=== PATIENT | male | born 1940 | race Hispanic/Latino ===

== ENCOUNTER → 2019-02-23 | Outpatient (CLI) | payer OTHER | END | disposition home or self-care (01) | LOC: OIH 12:35 | PROVIDERS: ATTEND Family Medicine | DX: S43.421A Sprain of right rotator cuff capsule, initial encounter (principal); M85.88 Other specified disorders of bone density and structure, other site; M19.011 Primary osteoarthritis, right shoulder; X58.XXXA Exposure to other specified factors, initial encounter; Y93.89 Activity, other specified; Y92.89 Other specified places as the place of occurrence of the external cause; Y99.8 Other external cause status | CPT/HCPCS: 73030; 73060 ==

== ENCOUNTER 2022-03-28 01:23 | Inpatient (IN) | payer OTHER ==
[~2022-03-28] VITALS: Ht 180.3 cm; Wt 79.8 kg
[~2022-03-28 01:23] MED LIST: GLIP5TAB11 PO; LISI20TA24 PO; SIMV-46 PO; vitamin d
[2022-03-28] MEDS ORDERED: ACETAMINOPHEN 325 MG TAB PO ONE (02:00)
[2022-03-28 02:05] LABS: BASOPHILS % (AUTO) 0.7 % (0.0-5.0); EOSINOPHILS % (AUTO) 4.2 % (0.0-8.0); HEMATOCRIT 37.4 % (42-54); MEAN CORPUSCULAR HEMOGLOBIN 28.3 pg (27.0-33.0); MEAN CORPUSCULAR HGB CONC 32.9 g/dL (32.0-36.0); MEAN CORPUSCULAR VOLUME 86.2 fL (79-99); MONOCYTES % (AUTO) 7.4 % (3.0-13.0); NEUTROPHILS % (AUTO) 75.4 % (40.0-77.0); PLATELET COUNT (AUTO) 238 K/uL (130-400); RED BLOOD CELL COUNT(AUTO) 4.34 MIL/uL (4.50-6.20); RED CELL DISTRIBUTION WIDTH 14.8 % (11.0-15.5); WHITE BLOOD COUNT (AUTO) 11.8 K/uL (4.8-10.8)
[2022-03-28] MEDS ORDERED: AMIODARONE 150MG VIAL IV STA (02:08)
[2022-03-28 02:26] LABS: CREATININE 1.1 mg/dL (0.5-1.5); POTASSIUM 3.8 mmol/L (3.5-5.1)
[2022-03-28 02:30] LABS: TOTAL PROTEIN, SERUM 8.3 g/dL (6.0-8.3)
[2022-03-28] MEDS ORDERED: DILTIAZEM 25MG INJ IVP ONE (02:30)
[2022-03-28 02:42] LABS: ABG BASE EXCESS -1.9 mmol/L (-2.0-3.0); ABG HCO3 21.8 mmol/L (21.0-28.0); ABG OXYGEN SATURATION 86.1 % (95.0-99.0); ABG PCO2 34 mmHg (35-48)
[2022-03-28 02:42] LABS: APPEARANCE,URINE CLEAR (CLEAR); BILIRUBIN,URINE NEGATIVE (NEGATIVE); COLOR,URINE LIGHT-YELLOW (YELLOW); GLUCOSE, URINE (UA) 70 mg/dL (NEGATIVE); KETONES,URINE NEGATIVE (NEGATIVE); LEUKOCYTE ESTERASE ,URINE NEGATIVE Leu/uL (NEGATIVE); NITRATE,URINE NEGATIVE (NEGATIVE); OCCULT BLOOD,URINE NEGATIVE (NEGATIVE); PH,URINE 5.5 (5.0-8.0); PROTEIN,URINE 20 mg/dL (NEGATIVE); UROBILINOGEN,URINE 0.2 mg/dL (0.2-1.0)
[2022-03-28 02:50] LABS: MUCUS,URINE RARE LPF (None Seen); WBC,URINE 0-1 /HPF (0-1)
[2022-03-28] MEDS ORDERED: DILTIAZEM 125 MG/25 ML INJ 125 MG in 0.9%NACL 100ML 100 ML IV SCH ×4 (03:00)
[2022-03-28] MEDS ORDERED: DILTIAZEM 125 MG/25 ML INJ IV ONE (03:24)
[2022-03-28] MEDS ORDERED: ALBUTEROL INHALER 90MCG/INH IH PRN (04:00)
[2022-03-28] MEDS ORDERED: HYDRALAZINE 20MG/ML VIAL IV PRN (04:00)
[2022-03-28] MEDS ORDERED: ACETAMINOPHEN 325 MG TAB PO PRN (04:00)
[2022-03-28] MEDS ORDERED: ACETAMINOPHEN 650 MG SUPPOSITORY RC PRN (04:00)
[2022-03-28] MEDS ORDERED: DILTIAZEM 125MG+100 ML NS 125 ML IV PRN (04:00)
[2022-03-28] MEDS: LACTATED RINGERS 1000ML 1,000 ML IV SCH ×3 (04:00→20:35)
[2022-03-28] MEDS ORDERED: ERGOCALCIFEROL (VITAMIN D2) 50,000 UNIT CAPSULE PO ONE (04:00)
[2022-03-28] MEDS ORDERED: ONDANSETRON 4MG INJ IVP PRN (04:00)
[2022-03-28] MEDS ORDERED: MORPHINE 2 MG SYG IVP PRN (04:00)
[2022-03-28] MEDS: DEXAMETHASONE SOD PHOSPHATE 4 MG/ML 1ML VIAL IVP SCH (04:00)
[2022-03-28] MEDS: DOXYCYCLINE 100MG+NS 250ML IV SCH ×2 (04:00→15:39)
[2022-03-28 04:41] LABS: ABG BASE EXCESS -2.9 mmol/L (-2.0-3.0); ABG HCO3 21.2 mmol/L (21.0-28.0); ABG OXYGEN SATURATION 97.9 % (95.0-99.0); ABG PCO2 35 mmHg (35-48)
[2022-03-28] MEDS: ALBUTEROL 0.083% 2.5 MG/3 ML INH IH PRN ×2 (06:22→11:17)
[2022-03-28] MEDS ORDERED: ERGOCALCIFEROL (VITAMIN D2) 50,000 UNIT CAPSULE ONE (08:25)
[2022-03-28] MEDS: ASCORBIC ACID 500 MG TAB PO SCH (08:31)
[2022-03-28] MEDS: ZINC SULFATE 220 CAPSULE PO SCH (08:32)
[2022-03-28] MEDS: INSULIN HUMULIN R 100 UNIT/ML 3ML SQ SCH ×4 (08:33→20:39)
[2022-03-28] MEDS ORDERED: ENOXAPARIN SODIUM 30 MG/0.3 ML SQ SCH (09:00)
[2022-03-28] MEDS ORDERED: DEXAMETHASONE SOD PHOSPHATE 10MG/ML 1ML VIAL IVP SCH (09:00)
[2022-03-28] MEDS ORDERED: ENOXAPARIN SODIUM 40 MG/0.4 ML SYRINGE SQ SCH (09:00)
[2022-03-28] MEDS ORDERED: DILTIAZEM 60MG TAB ONE (10:22)
[2022-03-28] MEDS: FUROSEMIDE 20MG VIAL IV SCH ×2 (10:26→20:36)
[2022-03-28] MEDS ORDERED: DILTIAZEM 60MG TAB PO SCH (10:30)
[2022-03-28] MEDS ORDERED: PANT40TA54 PO (10:37)
[2022-03-28 11:53] LABS: ABG BASE EXCESS 0.6 mmol/L (-2.0-3.0); ABG HCO3 24.7 mmol/L (21.0-28.0); ABG OXYGEN SATURATION 95.7 % (95.0-99.0); ABG PCO2 38 mmHg (35-48)
[2022-03-28 12:53] VITALS: BP 114/50
[2022-03-28] MEDS: METOPROLOL TARTRATE 25 MG TAB PO SCH ×3 (13:03→20:41)
[2022-03-28] MEDS ORDERED: 0.9% NACL 250ML 250 ML ONE (15:33)
[2022-03-28 15:40] VITALS: BP 104/54
[2022-03-28 19:53] VITALS: BP 108/58
[2022-03-28] MEDS ORDERED: ENOXAPARIN SODIUM 80 MG/0.8 ML SQ SCH (21:00)
[2022-03-28] MEDS ORDERED: PANTOPRAZOLE 40 MG TAB DR PO SCH (23:30)
[2022-03-28] MEDS ORDERED: PHARMACY COMMUNICATION MISC SCH (23:30)
[2022-03-29] VITALS (7 sets, daily range): BP systolic 100–144; BP diastolic 58–79
[2022-03-29] MEDS: DOXYCYCLINE 100MG+NS 250ML IV SCH ×2 (03:53→16:23)
[2022-03-29] MEDS: DEXAMETHASONE SOD PHOSPHATE 4 MG/ML 1ML VIAL IVP SCH (03:54)
[2022-03-29] MEDS: LACTATED RINGERS 1000ML 1,000 ML IV SCH (03:54)
[2022-03-29 04:09] LABS: BASOPHILS % (AUTO) 0.1 % (0.0-5.0); LYMPHOCYTES % (AUTO) 6.2 % (21.0-51.0); MEAN CORPUSCULAR HEMOGLOBIN 28.1 pg (27.0-33.0); MEAN CORPUSCULAR HGB CONC 31.6 g/dL (32.0-36.0); MEAN CORPUSCULAR VOLUME 88.8 fL (79-99); MONOCYTES % (AUTO) 6.5 % (3.0-13.0); NEUTROPHILS % (AUTO) 86.8 % (40.0-77.0); PLATELET COUNT (AUTO) 220 K/uL (130-400); RED BLOOD CELL COUNT(AUTO) 3.49 MIL/uL (4.50-6.20); RED CELL DISTRIBUTION WIDTH 14.8 % (11.0-15.5); WHITE BLOOD COUNT (AUTO) 11.4 K/uL (4.8-10.8)
[2022-03-29 04:23] LABS: ALBUMIN 2.9 g/dL (3.5-5.0); CREATININE 1.1 mg/dL (0.5-1.5); POTASSIUM 4.1 mmol/L (3.5-5.1); TOTAL PROTEIN, SERUM 6.9 g/dL (6.0-8.3)
[2022-03-29] MEDS: INSULIN HUMULIN R 100 UNIT/ML 3ML SQ SCH ×4 (05:48→21:00)
[2022-03-29] MEDS ORDERED: ENOXAPARIN SODIUM 80 MG/0.8 ML SQ SCH (09:00)
[2022-03-29 09:07] LABS: THYROID STIMULATING HORMONE 0.55 uIU/mL (0.36-3.74)
[2022-03-29] MEDS: ENOXAPARIN SODIUM 80 MG/0.8 ML SQ SCH ×2 (09:07→22:13)
[2022-03-29] MEDS: FUROSEMIDE 20MG VIAL IV SCH ×2 (09:07→22:12)
[2022-03-29] MEDS: ASCORBIC ACID 500 MG TAB PO SCH (09:08)
[2022-03-29] MEDS: PANTOPRAZOLE 40 MG TAB DR PO SCH (09:08)
[2022-03-29] MEDS: METOPROLOL TARTRATE 25 MG TAB PO SCH ×2 (09:08→22:12)
[2022-03-29] MEDS: ZINC SULFATE 220 CAPSULE PO SCH (09:08)
[2022-03-29 23:23] LABS: POTASSIUM 3.8 mmol/L (3.5-5.1)
[2022-03-30] VITALS (8 sets, daily range): BP systolic 117–147; BP diastolic 52–84
[2022-03-30] MEDS: DOXYCYCLINE 100MG+NS 250ML IV SCH ×2 (03:27→16:40)
[2022-03-30 04:18] LABS: BASOPHILS % (AUTO) 0.1 % (0.0-5.0); HEMATOCRIT 29.5 % (42-54); LYMPHOCYTES % (AUTO) 8.4 % (21.0-51.0); MEAN CORPUSCULAR HEMOGLOBIN 27.9 pg (27.0-33.0); MEAN CORPUSCULAR HGB CONC 31.5 g/dL (32.0-36.0); MEAN CORPUSCULAR VOLUME 88.6 fL (79-99); MONOCYTES % (AUTO) 5.3 % (3.0-13.0); NEUTROPHILS % (AUTO) 85.6 % (40.0-77.0); PLATELET COUNT (AUTO) 245 K/uL (130-400); RED BLOOD CELL COUNT(AUTO) 3.33 MIL/uL (4.50-6.20); RED CELL DISTRIBUTION WIDTH 14.5 % (11.0-15.5); WHITE BLOOD COUNT (AUTO) 9.8 K/uL (4.8-10.8)
[2022-03-30 04:45] LABS: ALBUMIN 2.8 g/dL (3.5-5.0); CREATININE 1.2 mg/dL (0.5-1.5); TOTAL PROTEIN, SERUM 6.5 g/dL (6.0-8.3)
[2022-03-30] MEDS: INSULIN HUMULIN R 100 UNIT/ML 3ML SQ SCH ×4 (06:47→20:13)
[2022-03-30] MEDS: DEXAMETHASONE 4 MG TAB PO SCH (09:15)
[2022-03-30] MEDS: ASCORBIC ACID 500 MG TAB PO SCH (09:16)
[2022-03-30] MEDS: ZINC SULFATE 220 CAPSULE PO SCH (09:16)
[2022-03-30] MEDS: PANTOPRAZOLE 40 MG TAB DR PO SCH ×2 (09:16→20:14)
[2022-03-30] MEDS: METOPROLOL TARTRATE 25 MG TAB PO SCH ×2 (09:16→20:15)
[2022-03-30] MEDS: ENOXAPARIN SODIUM 80 MG/0.8 ML SQ SCH (09:18)
[2022-03-30] MEDS: FUROSEMIDE 20MG VIAL IV SCH (09:19)
[2022-03-31 03:23] LABS: BASOPHILS % (AUTO) 0.1 % (0.0-5.0); HEMATOCRIT 31.5 % (42-54); LYMPHOCYTES % (AUTO) 11.6 % (21.0-51.0); MEAN CORPUSCULAR HEMOGLOBIN 28.3 pg (27.0-33.0); MEAN CORPUSCULAR HGB CONC 32.7 g/dL (32.0-36.0); MEAN CORPUSCULAR VOLUME 86.5 fL (79-99); MONOCYTES % (AUTO) 5.5 % (3.0-13.0); NEUTROPHILS % (AUTO) 82.2 % (40.0-77.0); PLATELET COUNT (AUTO) 281 K/uL (130-400); RED BLOOD CELL COUNT(AUTO) 3.64 MIL/uL (4.50-6.20); RED CELL DISTRIBUTION WIDTH 14.3 % (11.0-15.5); WHITE BLOOD COUNT (AUTO) 8.2 K/uL (4.8-10.8)
[2022-03-31 03:38] LABS: % IRON SATURATION 39.1 % (30-44); ALBUMIN 2.9 g/dL (3.5-5.0); CREATININE 1.1 mg/dL (0.5-1.5); POTASSIUM 3.7 mmol/L (3.5-5.1); TOTAL PROTEIN, SERUM 6.7 g/dL (6.0-8.3)
[2022-03-31 03:54] VITALS: BP 129/60
[2022-03-31] MEDS: DOXYCYCLINE 100MG+NS 250ML IV SCH ×2 (04:14→16:38)
[2022-03-31] MEDS: INSULIN HUMULIN R 100 UNIT/ML 3ML SQ SCH ×4 (06:21→20:43)
[2022-03-31 07:00] VITALS: BP 154/76
[2022-03-31] MEDS ORDERED: ENOXAPARIN SODIUM 40 MG/0.4 ML SYRINGE SQ SCH (09:00)
[2022-03-31] MEDS ORDERED: AMLODIPINE 5 MG TAB PO SCH ×2 (09:00→10:00)
[2022-03-31] MEDS: FUROSEMIDE 20 MG TABLET PO SCH (09:49)
[2022-03-31] MEDS: DEXAMETHASONE 4 MG TAB PO SCH (09:49)
[2022-03-31] MEDS: ASCORBIC ACID 500 MG TAB PO SCH (09:49)
[2022-03-31] MEDS: ZINC SULFATE 220 CAPSULE PO SCH (09:50)
[2022-03-31] MEDS: PANTOPRAZOLE 40 MG TAB DR PO SCH ×2 (09:50→20:42)
[2022-03-31 11:00] VITALS: BP 139/70
[2022-03-31 16:00] VITALS: BP 112/58
[2022-03-31 20:08] VITALS: BP 138/74
[2022-03-31] MEDS: APIXABAN 5 MG TABLET PO SCH (20:42)
[2022-03-31] MEDS ORDERED: METOPROLOL TARTRATE 25 MG TAB PO SCH (21:00)
[2022-03-31 23:59] VITALS: BP 126/70
[2022-04-01 03:35] LABS: BASOPHILS % (AUTO) 0.1 % (0.0-5.0); LYMPHOCYTES % (AUTO) 13.9 % (21.0-51.0); MEAN CORPUSCULAR HEMOGLOBIN 27.9 pg (27.0-33.0); MEAN CORPUSCULAR HGB CONC 32.9 g/dL (32.0-36.0); MEAN CORPUSCULAR VOLUME 84.9 fL (79-99); MONOCYTES % (AUTO) 7.6 % (3.0-13.0); NEUTROPHILS % (AUTO) 77.6 % (40.0-77.0); PLATELET COUNT (AUTO) 295 K/uL (130-400); RED BLOOD CELL COUNT(AUTO) 3.65 MIL/uL (4.50-6.20); WHITE BLOOD COUNT (AUTO) 7.9 K/uL (4.8-10.8)
[2022-04-01 03:51] LABS: CREATININE 0.9 mg/dL (0.5-1.5); POTASSIUM 3.9 mmol/L (3.5-5.1)
[2022-04-01 04:00] VITALS: BP 143/73
[2022-04-01] MEDS: DOXYCYCLINE 100MG+NS 250ML IV SCH (04:06)
[2022-04-01] MEDS: INSULIN HUMULIN R 100 UNIT/ML 3ML SQ SCH (06:11)
[2022-04-01] MEDS ORDERED: FURO20TA6 PO (07:31)
[2022-04-01] MEDS ORDERED: DOXY100T21 PO (07:31)
[2022-04-01] MEDS ORDERED: DEXA4 PO (07:31)
[2022-04-01] MEDS ORDERED: METO25 PO (07:31)
[2022-04-01] MEDS ORDERED: APIX5TAB PO (07:31)
[2022-04-01] MEDS ORDERED: AMLO5TAB4 PO (07:31)
[2022-04-01 08:00] VITALS: BP 164/79
[2022-04-01] MEDS: APIXABAN 5 MG TABLET PO SCH (08:20)
[2022-04-01] MEDS: ZINC SULFATE 220 CAPSULE PO SCH (08:20)
[2022-04-01] MEDS: PANTOPRAZOLE 40 MG TAB DR PO SCH (08:20)
[2022-04-01] MEDS: ASCORBIC ACID 500 MG TAB PO SCH (08:21)
[2022-04-01] MEDS: FUROSEMIDE 20 MG TABLET PO SCH (08:21)
[2022-04-01] MEDS: DEXAMETHASONE 4 MG TAB PO SCH (08:21)
[2022-04-01] MEDS ORDERED: AMLODIPINE 5 MG TAB PO SCH (09:00)
[2022-04-01] MEDS ORDERED: METOPROLOL TARTRATE 25 MG TAB PO SCH (09:00)
== END 2022-04-01 10:25 | disposition home or self-care (01) | DRG 871 ==
LOC: EDH 01:23 → EDHIP 03:42 → 2AH 10:57
PROVIDERS: ADMIT Internal Medicine Critical Care Medicine; ATTEND Internal Medicine Critical Care Medicine
DX: A41.9 Sepsis, unspecified organism (principal); I50.33 Acute on chronic diastolic (congestive) heart failure; J12.82 Pneumonia due to coronavirus disease 2019; J96.01 Acute respiratory failure with hypoxia; U07.1 COVID-19; E11.65 Type 2 diabetes mellitus with hyperglycemia; I11.0 Hypertensive heart disease with heart failure; D64.9 Anemia, unspecified; E78.00 Pure hypercholesterolemia, unspecified; I48.0 Paroxysmal atrial fibrillation; Z96.641 Presence of right artificial hip joint; Z90.49 Acquired absence of other specified parts of digestive tract; Z82.49 Family history of ischemic heart disease and other diseases of the circulatory system; Z79.899 Other long term (current) drug therapy; Z79.01 Long term (current) use of anticoagulants
CPT/HCPCS: 36415; 36600; 71045; 71250; 80048; 80053; 81001; 82270; 82435; 82550; 82728; 82803; 82947; 82948; 83540; 83550; 83605; 83615; 83735; 83880; 84132; 84145; 84295; 84443; 84484; 85018; 85025; 85378; 86850; 86900; 86901; 87040; 87071; 87205; 87635; 87804; 93005; 93306; 93356; 94640; 94664; 94667; 94668; 94760; 99291; C9803; G0378; J0282; J1100; J1650; J1815; J1940; J3490; J7050; J7120; J8540

== ENCOUNTER 2022-11-11 11:53 | Emergency (ER) | payer OTHER ==
[~2022-11-11] VITALS: Ht 180.3 cm; Wt 78.0 kg
[~2022-11-11 11:53] MED LIST changes: +APIX5TAB PO; +ERGO800010 PO; +GLIP2.5T PO; -GLIP5TAB11 PO; +LEVO750T68 PO; +METF-446 PO; +METO25 PO; +PANT40GR PO; -SIMV-46 PO; +SIMV40TA59 PO; -vitamin d
[2022-11-11] MEDS ORDERED: ACETAMINOPHEN 500 MG TABLET PO ONE (12:30)
[2022-11-11] MEDS ORDERED: ACET-2521 PO (14:08)
[2022-11-11 14:21] VITALS: BP 123/58; PULSE 78; RESP 18; O2SAT 98
== END 2022-11-11 14:23 | disposition home or self-care (01) ==
LOC: EDH 11:53
DX: M75.01 Adhesive capsulitis of right shoulder (principal); M25.511 Pain in right shoulder; M19.90 Unspecified osteoarthritis, unspecified site; E11.9 Type 2 diabetes mellitus without complications; E78.00 Pure hypercholesterolemia, unspecified; I10 Essential (primary) hypertension; Z79.01 Long term (current) use of anticoagulants; Z79.84 Long term (current) use of oral hypoglycemic drugs; Z79.899 Other long term (current) drug therapy
CPT/HCPCS: 73030

== ENCOUNTER 2024-05-07 16:21 | Emergency (ER) | payer OTHER ==
[~2024-05-07] VITALS: Ht 180.3 cm; Wt 79.8 kg
[~2024-05-07 16:21] MED LIST changes: +ATOR20TA65 PO; +DAPA10TA PO; +DILT240C81 PO; +ERGO500093 PO; -ERGO800010 PO; +FLUT1AER IH; -GLIP2.5T PO; +GLIP2.5T23 PO; -LEVO750T68 PO; -LISI20TA24 PO; -METO25 PO; -PANT40GR PO; +PANT40TA54 PO; -SIMV40TA59 PO
[2024-05-07] MEDS: NEOMY SULF/BACITRA/POLYMYXIN B 1 EACH PACKET TP ONE (16:30)
[2024-05-07] MEDS ORDERED: OCTYL 2-CYANOACRYLATE 1 EACH TP SCH (16:30)
--- NOTE | 2024-05-07 16:38 | ERN ---
ED Note History of Present Illness Stated Complaint: MECHANICAL FALL Chief Complaint: Mechanical Fall Time Seen by MD: 16:23 Dictation: PATIENT IS AN 83-YEAR-OLD MALE COMING IN WITH A LACERATION TO THE LEFT TEMPORAL AREA, LEFT HAND SWELLING, BILATERAL KNEE PAIN STATUS POST A FALL. HE AND HIS FAMILY STATES THEY WERE AT A TODAY HE WAS WALKING OUT OF THE , TRIPPED AND FELL HIT HIS HEAD. NO LOC NO BLOOD THINNERS NO TRAUMA ALERT CRITERIA. LAST TETANUS SHOT IS UNKNOWN. NO SPINAL PAIN AT THIS TIME NO STEP- OFFS AND PATIENT'S FAMILY STATE HE IS NEUROLOGICALLY INTACT WITH SPEECH CLEAR Allergies: Coded Allergies: No Known Allergies (Verified Allergy, Unknown, 10/30/21) Home Meds Active Scripts Cephalexin (Cephalexin) 500 Mg Tablet, 1 TAB PO TID for 7 Days, #21 TAB 0 Refills Prov:DIAN VELASCO HIDE MEASURING MACHINE OPERATOR 05/07/24 Reported Medications Fluticasone/Vilanterol (Breo Ellipta 100-25 Mcg INH) 100 Mcg-25 Mcg/Dose Aer.pow.ba, 1 EACH IH DAILYBKFST 06/21/23 Atorvastatin Calcium (Atorvastatin Calcium) 20 Mg Tablet, 20 MG PO DAILY, TAB 06/21/23 Glipizide (Glipizide ER) 2.5 Mg Tab.er.24, 2.5 MG PO DAILY 06/21/23 Ergocalciferol (Vitamin D2) (Vitamin D2) 1,250 Mcg (41010 Unit) Capsule, 1250 MCG PO QWEEK, CAP 06/21/23 Dapagliflozin Propanediol (Farxiga) 10 Mg Tablet, 10 MG PO DAILYBKFST, TAB 06/21/23 Apixaban (Eliquis) 5 Mg Tablet, 5 MG PO BID, TAB 06/21/23 Metformin HCl (Metformin HCl) 1,000 Mg Tablet, 1000 MG PO BID, TAB 06/21/23 Pantoprazole Sodium (Pantoprazole Sodium) 40 Mg Tablet.dr, 40 MG PO DAILY, TAB 06/21/23 Diltiazem HCl (Diltiazem ER) 240 Mg Capsule.er, 240 MG PO DAILYBKFST, CAP 06/21/23 Past Medical History Past Medical History: Arthritis, Diabetes-Type II, High Cholesterol, Hypertension Surgical History: Other Surgical History Other: BACK SURGERY, HIP SX Family History: HTN Social History: Negative, Lives with family RN Note Reviewed/Agreed w/PFSH: Yes Review of System Dictation CONSTITUTIONAL: NEGATIVE EXCEPT FOR HPI HEAD/FACE: NEGATIVE EXCEPT FOR HPI LEFT TEMPORAL LACERATION EENT: NEGATIVE EXCEPT FOR HPI RESPIRATORY: NEGATIVE EXCEPT FOR HPI GASTROINTESTINAL/ABDOMINAL: NEGATIVE EXCEPT FOR HPI GENITOURINARY: NEGATIVE EXCEPT FOR HPI MUSCULOSKELETAL: NEGATIVE EXCEPT FOR HPI LEFT HAND PAIN SWELLING, ABRASIONS WITH KNEE PAIN BILATERALLY INTEGUMENTARY: NEGATIVE EXCEPT FOR HPI NEUROLOGICAL/PSYCH: NEGATIVE EXCEPT FOR HPI HEMATOLOGIC/LYMPHATIC: NEGATIVE EXCEPT FOR HPI ALL SYSTEMS NEGATIVE, EXCEPT NOTED ABOVE. 13 POINT REVIEW OF SYSTEMS ASSESSED AND ALL NEGATIVE EXCEPT FOR ABOVE. Initial Vital Sign VS Vital Signs Date Time Temp Pulse Resp B/P (MAP) Pulse Ox O2 Delivery O2 Flow Rate FiO2 05/07/24 16:31 98.2 71 16 161/94 97 Room Air 05/07/24 20:30 0 21 Physical Exam Dictation VITAL SIGNS REVIEWED GENERAL APPEARANCE: ALERT, ORIENTED X 3, NO ACUTE DISTRESS, WELL DEVELOPED, NOURISHED. HEAD AND FACE: LEFT TEMPORAL 3 CM LACERATION. NO FRANCISCO OR RACCOON SIGN EYES: PERRL, PINK CONJUNCTIVAS, EYELID NO TRAUMA, ANTERIOR CHAMBER WITH ARCUS SENILIS. EARS: PINNAS INTACT AND NO SIGNS OF TRAUMA OR ERYTHEMA EAR CANALS CLEAR AND NO DISCHARGE TM NO ERYTHEMA NO HEMOTYMPANUM NOSE: NO DISCHARGE, NO BLEEDING. OROPHARYNX: MOUTH NORMAL, TONGUE PINK, PHARYNX CLEAR,NO ERYTHEMA, TONSILS NO EXUDATES, NO ABSCESSES NOTED, MUCOUS MEMBRANE MOIST NECK: SUPPLE, NON-TENDER, NO THYROMEGALY, NO MASSES, NO JVD, NO BRUITS BREAST:DEFERRED CHEST:NO TENDERNESS, NO CREPITUS, NO PARADOXICAL MOVEMENT, NO RETRACTIONS LUNGS:CLEAR, WELL-VENTILATED, SYMMETRIC, NO RALES, NO WHEEZING, NO RHONCHI, NO STRIDOR, GOOD BREATH SOUNDS BILATERALLY HEART: REGULAR RATE, REGULAR RHYTHM, NO MURMUR, NO GALLOPS VASCULAR: NO PERIPHERAL EDEMA, ABDOMEN: SOFT, POSITIVE BOWEL SOUNDS, NONDISTENDED, NO GUARDING, NONTENDER, NO REBOUND, NO MASSES NO HEPATOMEGALY, NO SPLENOMEGALY, NO NELSON'S SIGN, NO HERNIAS. RECTAL: DEFERRED GENITAL: DEFERRED NEUROLOGICAL: NORMAL SPEECH, MOTOR FUNCTION INTACT, SENSORY FUNCTION INTACT MUSCULOSKELETAL: NECK NONTENDER, FULL RANGE OF MOTION, BACK NONTENDER, FULL RANGE OF MOTION, NO SPINAL OR BACK PAIN. NO STEP-OFFS FULL RANGE OF MOTION LEFT HAND 4TH METACARPAL PAIN SWELLING. EXTREMITIES: , FULL RANGE OF MOTION LEFT HAND 4TH METACARPAL PAIN SWELLING. SKIN: COLOR PINK, DRY, NO TURGOR, NO RASH, NO LACERATIONS, NO ABRASIONS, NO CONTUSIONS. LYMPHATIC: DEFERRED Results (Laboratory/Radiology) Laboratory/Radiology RIGHT KNEE RADIOGRAPHS - 3 VIEWS INDICATION: Pain COMPARISON: None FINDINGS: AP, lateral, and oblique views. No acute fracture or dislocation identified. No significant joint effusion is present. Overlying soft tissues appear normal. IMPRESSION: No evidence for fracture or dislocation. LEFT KNEE RADIOGRAPHS - 3 VIEWS INDICATION: Pain COMPARISON: None FINDINGS: AP, lateral, and oblique views. No fracture or dislocation identified. 1.0 x 0.5 cm osseous overgrowth arises superiorly from the medial margin of the distal left femoral metaphysis compatible with small osteochondroma. No significant joint effusion is present. Overlying soft tissues appear normal. No radiopaque foreign body noted. IMPRESSION: No evidence for fracture or dislocation. LEFT HAND RADIOGRAPHS - 3 VIEWS INDICATION: Pain COMPARISON: None FINDINGS: AP, lateral, and oblique views. Nondisplaced slightly comminuted fracture through the far proximal fourth metacarpal shaft, but no evidence for joint subluxation. Moderate first carpometacarpal joint osteoarthropathy. Scaphoid bone is intact. Carpal alignment and ulnar variance is within normal limits. No radiopaque foreign body noted. IMPRESSION: Nondisplaced slightly comminuted fracture through the far proximal fourth metacarpal shaft, but no evidence for joint subluxation. LEFT RIBS/CHEST RADIOGRAPHS - 5 VIEWS INDICATION: Left rib pain COMPARISON: None FINDINGS: Heart size is normal. Lungs are clear. No evidence for pneumothorax or pleural effusion. No evidence for pulmonary parenchymal contusion. No rib fracture identified. No radiopaque foreign body noted. IMPRESSION: 1. No rib fracture identified. 2. No radiographic evidence for any acute cardiopulmonary process. Labs Reviewed?: Yes ED Course ED Course Orders Procedure Category Date Status Time Knee 3vws Lt RAD 05/07/24 Resulted 16:30 Knee 3vws Rt RAD 05/07/24 Resulted 16:30 Hand 3+Vws Lt RAD 05/07/24 Resulted 16:30 Dermabond (Dermabond) PHA 05/07/24 Complete 16:30 Tetanus,Diphtheria PHA 05/07/24 Complete Tox [Adult] (Diphther 16:30 Neomy PHA 05/07/24 Complete Sulf/Bacitra/Polymyxin 16:30 Apply Ice Pack To: CPOE 05/07/24 Transmitted (Er) 16:30 Volar Splint JOSR.ER 05/07/24 Complete 19:10 Ribs Uni Lt W Pa RAD 05/07/24 Resulted Chest 3+Vws 18:09 Dermabond (Dermabond) PHA 05/07/24 Complete 21:00 Neomy PHA 05/07/24 Complete Sulf/Bacitra/Polymyxin 21:00 Current Medications Medications (Trade) Dose Ordered Sig/Lior Route PRN Reason Start Time Stop Time Status Last Admin Dose Admin Neomycin/ Polymyxin/ Bacitracin (Triple Antibiotic Ointment) 1 appl ONCE ONCE TP 05/07/24 16:30 05/07/24 16:33 DC 05/07/24 16:30 Neomycin/ Polymyxin/ Bacitracin (Triple Antibiotic Ointment) 1 appl ONCE ONCE TP 05/07/24 21:00 05/07/24 21:01 DC Octyl Cyanoacrylate (Dermabond) 1 each ONCE TP 05/07/24 16:30 05/07/24 20:37 DC Octyl Cyanoacrylate (Dermabond) 1 each ONCE ONCE TP 05/07/24 21:00 05/07/24 21:01 DC 05/07/24 20:53 Tetanus/ Diphtheria Toxoids Adsorbed (DiphthERIA-teTANUS TOXOID [ADULT]/ DECAVAC) 0.5 ml ONCE ONCE IM 05/07/24 16:30 05/07/24 16:33 DC 05/07/24 20:53 Vital Signs Date Time Temp Pulse Resp B/P (MAP) Pulse Ox O2 Delivery O2 Flow Rate FiO2 05/07/24 20:30 98.2 70 16 160/90 98 Room Air* 0 21 05/07/24 16:31 98.2 71 16 161/94 97 Room Air 1950 left volar splint placed to hand. Neurovascular CMS intact post placement by tech. Family was made aware of the x-ray of the left hand and the fracture of the 4th metacarpal Also the need for follow up with Orthopedics Medical Decision Making MDM Medical discharge making based on x-rays of bilateral knees, left hand, left ribs. All x-rays negative except left hand Patient has a left 4th proximal metacarpal fracture This was stabilized with a splint Patient discharged home neurologically intact Aware to call up Dr. Jane Suresh in the next 1-2 days for manage MDM: Differential diagnosis: Fall, knee contusion, abrasion Risk of complication and/or morbidity or mortality of patient management: None Medications-Per medication reconciliation Need for hospitalization: Patient does not meet criteria for hospitalization. Need for emergency major/minor surgery: No There are no social concerns with this patient. Prescription drug management Prescriptions will include symptomatic care I independently interpreted the test that were performed, results were reviewed by me and considered findings on radiology if ordered. Procedure Procedure Dictation: 1946, procedure explained to patient he agreed to proceed 3 Cm laceration to right temporal scalp Cleaned with wound cleanser Approximated with Dermabond and Steri-Strips Single-layer closure Patient tolerated DX & DISP Disposition: Discharge Departure Impression: Primary Impression: Fracture of fourth metacarpal bone of left hand Additional Impressions: Contusion of left chest wall, Contusion of knee, left, Contusion of knee, right, Multiple abrasions, Simple laceration of scalp, Fall Condition: Stable Scripts Cephalexin (Cephalexin) 500 Mg Tablet 1 TAB PO TID for 7 Days, #21 TAB 0 Refills Prov: DIAN VELASCO HIDE MEASURING MACHINE OPERATOR 05/07/24 Additional Instructions: Follow-up with primary care provider in 1 to 2 days. Take medications as directed here in the emergency room. Okay to continue home medications unless otherwise discussed during your visit in the emergency room today. Return to your nearest emergency room if symptoms worsen or if there is no improvement. Call 911 if you need immediate assistance. Take Tylenol or Motrin [id number] as needed and if no contraindications are present. Increase oral hydration. A wound culture or urine culture was ordered here in the emergency room department please follow-up with primary care provider and advise them to get repeat ports from our facility. If you had any Manolo wrap/splints that were applied here, please do not remove them until you see your primary care or specialty. Keep laceration repair clean and dry. Steri-Strips were fall off on their own. Splint and no weight-bearing left hand until cleared by orthopedic surgeon, call for an appointment tomorrow. Referrals: SEEMA MENDOZA MD (PCP) JANE SURESH MD Time of Disposition: 19:56 I have reviewed the case, and I agree with, Diagnosis and Plan I performed the substantive portion of the visit. I have reviewed and personally made and approve the management plan that is documented in the notes by myself or the KIRSTY. I acknowledge full responsibility for the patient's management plan. DIAN VELASCO NP May 07, 2024 16:38 BONILLA OAKLEY MD May 08, 2024 16:37
--- NOTE | 2024-05-07 17:44 | HMCIMG ---
LEFT HAND RADIOGRAPHS - 3 VIEWS INDICATION: Pain COMPARISON: None FINDINGS: AP, lateral, and oblique views. Nondisplaced slightly comminuted fracture through the far proximal fourth metacarpal shaft, but no evidence for joint subluxation. Moderate first carpometacarpal joint osteoarthropathy. Scaphoid bone is intact. Carpal alignment and ulnar variance is within normal limits. No radiopaque foreign body noted. IMPRESSION: Nondisplaced slightly comminuted fracture through the far proximal fourth metacarpal shaft, but no evidence for joint subluxation.
--- NOTE | 2024-05-07 17:45 | HMCIMG ---
LEFT KNEE RADIOGRAPHS - 3 VIEWS INDICATION: Pain COMPARISON: None FINDINGS: AP, lateral, and oblique views. No fracture or dislocation identified. 1.0 x 0.5 cm osseous overgrowth arises superiorly from the medial margin of the distal left femoral metaphysis compatible with small osteochondroma. No significant joint effusion is present. Overlying soft tissues appear normal. No radiopaque foreign body noted. IMPRESSION: No evidence for fracture or dislocation.
--- NOTE | 2024-05-07 17:45 | HMCIMG ---
RIGHT KNEE RADIOGRAPHS - 3 VIEWS INDICATION: Pain COMPARISON: None FINDINGS: AP, lateral, and oblique views. No acute fracture or dislocation identified. No significant joint effusion is present. Overlying soft tissues appear normal. IMPRESSION: No evidence for fracture or dislocation.
--- NOTE | 2024-05-07 19:23 | HMCIMG ---
LEFT RIBS/CHEST RADIOGRAPHS - 5 VIEWS INDICATION: Left rib pain COMPARISON: None FINDINGS: Heart size is normal. Lungs are clear. No evidence for pneumothorax or pleural effusion. No evidence for pulmonary parenchymal contusion. No rib fracture identified. No radiopaque foreign body noted. IMPRESSION: 1. No rib fracture identified. 2. No radiographic evidence for any acute cardiopulmonary process.
--- NOTE | 2024-05-07 19:28 | NUR ---
LACERATION TO LEFT CAODAISM AREA. DRESSING SOILED. NON ADHERENT DRESSING APPLIED AND SECUREDE WITH CONNOR BANDAGE. ICE PACK PROVIDED
[2024-05-07] MEDS ORDERED: CEPH500T PO (19:57)
--- NOTE | 2024-05-07 20:28 | NUR ---
PT TO FT AT THIS TIME
[2024-05-07 20:30] VITALS: BP 160/90; PULSE 70; RESP 16; TEMP 98.2; O2SAT 98
[2024-05-07] MEDS: teTANUS/diphthERIA TOXOID [ADULT] 0.5 ML VIAL IM ONE (20:53)
[2024-05-07] MEDS: OCTYL 2-CYANOACRYLATE 1 EACH TP ONE (20:53)
[2024-05-07] MEDS ORDERED: NEOMY SULF/BACITRA/POLYMYXIN B 1 EACH PACKET TP ONE (21:00)
== END 2024-05-07 21:03 | disposition home or self-care (01) ==
LOC: EDH 16:21
DX: S62.355A Nondisplaced fracture of shaft of fourth metacarpal bone, left hand, initial encounter for closed fracture (principal); S01.01XA Laceration without foreign body of scalp, initial encounter; S20.212A Contusion of left front wall of thorax, initial encounter; S80.01XA Contusion of right knee, initial encounter; S80.02XA Contusion of left knee, initial encounter; M19.90 Unspecified osteoarthritis, unspecified site; E11.9 Type 2 diabetes mellitus without complications; E78.00 Pure hypercholesterolemia, unspecified; I10 Essential (primary) hypertension; Z79.01 Long term (current) use of anticoagulants; Z79.51 Long term (current) use of inhaled steroids; Z79.84 Long term (current) use of oral hypoglycemic drugs; Z79.899 Other long term (current) drug therapy; W01.0XXA Fall on same level from slipping, tripping and stumbling without subsequent striking against object, initial encounter; Y93.89 Activity, other specified; Y92.89 Other specified places as the place of occurrence of the external cause; Y99.8 Other external cause status
CPT/HCPCS: 12002; 29125; 71101; 73130; 73562; 90471; 90714; 99284

== ENCOUNTER 2024-05-11 21:30 | Emergency (ER) | payer OTHER ==
[~2024-05-11] VITALS: Ht 180.3 cm; Wt 82.1 kg
[~2024-05-11 21:30] MED LIST changes: +CEPH500T PO; +GLIP2.5T2 PO; -GLIP2.5T23 PO
--- NOTE | 2024-05-11 22:47 | ERN ---
General Chief Complaint: Arm Swelling/Redness Stated Complaint: MULTIPLE COMPLAINTS Time Seen by MD: 21:31 Source: patient, family History of Present Illness Initial Comments Patient is a an 83-year-old male coming in to be evaluated for left hand swel ling. Per patient he was diagnosed with a 10 fracture type of the days ago but states that he was not been able to see photographic specialist. Patient also states that he was had has a been hurting more. Allergies: Coded Allergies: No Known Allergies (Verified Allergy, Unknown, 10/30/21) Home Meds Active Scripts Cephalexin (Cephalexin) 500 Mg Tablet, 1 TAB PO TID for 7 Days, #21 TAB 0 Refills Prov:RODDIAN CUSTOMER OPERATIONS REPRESENTATIVE 05/07/24 Reported Medications Fluticasone/Vilanterol (Breo Ellipta 100-25 Mcg INH) 100 Mcg-25 Mcg/Dose Aer.pow.ba, 1 EACH IH DAILYBKFST 06/21/23 Atorvastatin Calcium (Atorvastatin Calcium) 20 Mg Tablet, 20 MG PO DAILY, TAB 06/21/23 Glipizide (Glipizide ER) 2.5 Mg Tab.er.24, 2.5 MG PO DAILY 06/21/23 Ergocalciferol (Vitamin D2) (Vitamin D2) 1,250 Mcg (30235 Unit) Capsule, 1250 MCG PO QWEEK, CAP 06/21/23 Dapagliflozin Propanediol (Farxiga) 10 Mg Tablet, 10 MG PO DAILYBKFST, TAB 06/21/23 Apixaban (Eliquis) 5 Mg Tablet, 5 MG PO BID, TAB 06/21/23 Metformin HCl (Metformin HCl) 1,000 Mg Tablet, 1000 MG PO BID, TAB 06/21/23 Pantoprazole Sodium (Pantoprazole Sodium) 40 Mg Tablet.dr, 40 MG PO DAILY, TAB 06/21/23 Diltiazem HCl (Diltiazem ER) 240 Mg Capsule.er, 240 MG PO DAILYBKFST, CAP 06/21/23 Past Medical History Past Medical History: Diabetes-Type II, High Cholesterol, Hypertension Past Surgical History: Other Surgical History Other: BACK SURGERY, HIP SX Family History Family History: HTN Social History Social History: Negative, Lives with family ROS Dictation CONSTITUTIONAL: No chills, no fever, no weakness, no diaphoresis, no malaise. HEAD/FACE: No signs of trauma. EENT: No eye pain, no blurred vision, no tearing, no double vision, no ear pain, no ear discharge, no nose pain, no nasal congestion, no throat pain, no throat swelling, no mouth pain. RESPIRATORY: No cough, no orthopnea, no SOB, no stridor, no wheezing. CARDIOVASCULAR: No chest pain, no edema, no palpitations, no syncope. GASTROINTESTINAL/ABDOMINAL: No abdominal pain, no constipation, no diarrhea, no nausea, no vomiting. GENITOURINARY: No abnormal discharge, no dysuria, no frequent urination, no hematuria. No complaints of pain in the genitals. MUSCULOSKELETAL: No back pain, no gout, no joint pain, joint swelling,muscle pain, no muscle stiffness, no neck pain. INTEGUMENTARY: No change in color, no change in hair/nails, no dryness, no lesion, no lumps, no rash. NEUROLOGICAL/PSYCH: No anxiety, not depressed, no emotional problem, no headache, no numbness, no pre-existing deficit, no history of seizures, no tremors, no weakness. HEMATOLOGIC/LYMPHATIC: Not anemic, no history of blood clots, no apparent bleeding, no bruising, glands not swollen. All Systems Negative, Except as Noted. Physical Exam Physical Exam Dictation VITAL SIGNS: Reviewed. GENERAL APPEARANCE: Alert, oriented x3, no acute distress, obese. HEAD AND FACE: Non-traumatic. EYES: PERRL, pink conjunctivas, eyelid no trauma, anterior chamber clear. EARS: Pinnas intact and no signs of trauma or erythema. Ear canals clear and no discharge. TMs no erythema. NOSE: No discharge, no bleeding. OROPHARYNX: Mouth normal, teeth no caries, tongue pink. Pharynx clear, no erythema. Tonsils no exudates, no abscesses noted. Mucous membrane moist. NECK: Supple, non-tender, no thyromegaly, no masses, no JVD, no bruits. BREAST: Deferred. CHEST: No tenderness, no crepitus, no paradoxical movement, no retractions. LUNGS: Clear, well-ventilated, symmetric, no rales, no wheezing, no rhonchi, no stridor, good breath sounds bilaterally. HEART: Regular rate, regular rhythm, no murmur, no gallops. VASCULAR: No peripheral edema. ABDOMEN: Soft, positive bowel sounds, nondistended, no guarding, nontender, no rebound, no masses no hepatomegaly, no splenomegaly, no Peña's sign, no hernias. RECTAL: Deferred. GENITAL: Deferred. NEUROLOGICAL: Normal speech, gross motor function intact, gross sensory function intact. MUSCULOSKELETAL: Neck nontender, full range of motion, back nontender, full range of motion. EXTREMITIES: Nontender, full range of motion. Left hand pain on palpation, pulses present SKIN: Color pink, dry, no turgor, no rash, no lacerations, no abrasions, no contusions. LYMPHATICS: Deferred. Results Laboratory and Microbiology Labs Reviewed?: Yes EKG/XRAY/US/CT/MRI X-RAY Comment [id number] [address] IMAGING REPORT Signed PATIENT: JENAE FISHER MR#: [id number] : 1940 SEX: M AGE: 83 LOCATION: [facility] ORDER 32 STATUS: [facility] REPORT#: [id number] SERVICE 29 REASON: LEFT 4TH METACARPAL PAIN SWELLING STATUS POST FALL ORDERING PHYSICIAN: DIAN VELASCO NP PROCEDURE: HAND 3V LT - HAND 3+VWS LT LEFT HAND RADIOGRAPHS - 3 VIEWS INDICATION: Pain COMPARISON: None FINDINGS: AP, lateral, and oblique views. Nondisplaced slightly comminuted fracture through the far proximal fourth metacarpal shaft, but no evidence for joint subluxation. Moderate first carpometacarpal joint osteoarthropathy. Scaphoid bone is intact. Carpal alignment and ulnar variance is within normal limits. No radiopaque foreign body noted. IMPRESSION: Nondisplaced slightly comminuted fracture through the far proximal fourth metacarpal shaft, but no evidence for joint subluxation. DICTATED BY: BRITTANIE HERRMANN MD DATE: 05/07/241740 ELECTRONICALLY SIGNED BY: BRITTANIE HERRMANN MD DATE: 05/07/241743 Left hand x-ray- no change from previous one MDM MDM: Differential diagnosis: Metacarpal fracture, follow up, Patient is a an 83-year-old gentleman coming in to be evaluated for left hand pain. Patient was diagnosed with metacarpal fracture previous visit. Per patient he was concerned because the swelling is present. On physical exam patient is wearing a sling in his hand is splinted, laying not for used I educated him on proper placement of and in order to improve congestion of the distal extremity. Also advised him appropriate follow up PCP and/or orthopedic specimen 1-2 days. ED Course Orders Procedure Category Date Status Time Hand 3+Vws Lt RAD 05/11/24 Taken 21:39 Vital Signs Date Time Temp Pulse Resp B/P (MAP) Pulse Ox O2 Delivery O2 Flow Rate FiO2 05/11/24 21:37 98.2 75 20 122/80 98 Room Air DX & DISP Disposition: Discharge Departure Impression: Primary Impression: Fracture of fourth metacarpal bone of left hand Condition: Stable Additional Instructions: FOLLOW-UP WITH PRIMARY CARE PROVIDER IN 1 TO 2 DAYS. TAKE MEDICATIONS DIRECTED HERE IN THE EMERGENCY ROOM. OKAY TO CONTINUE HOME MEDICATIONS UNLESS OTHERWISE DISCUSSED DURING YOUR VISIT IN THE EMERGENCY ROOM TODAY. RETURN TO YOUR NEAREST EMERGENCY ROOM IF SYMPTOMS WORSEN OR IF THERE IS NO IMPROVEMENT. CALL 911 IF YOU NEED IMMEDIATE ASSISTANCE. TAKE TYLENOL [id number] NEEDED AND IF NO CONTRAINDICATIONS ARE PRESENT. INCREASE ORAL HYDRATION. A WOUND CULTURE OR URINE CULTURE WAS ORDERED HERE IN THE EMERGENCY ROOM DEPARTMENT PLEASE FOLLOW-UP WITH PRIMARY CARE PROVIDER AND ADVISE THEM TO GET REPEAT PORTS FROM OUR FACILITY. IF YOU HAD ANY CONNOR WRAP/SPLINTS THAT WERE APPLIED HERE, PLEASE DO NOT REMOVE THEM UNTIL YOU SEE YOUR PRIMARY CARE OR SPECIALTY. Referrals: Referrals: SEEMA MENDOZA MD (PCP) NELDA HAWKINS MD Time of Disposition: 22:47 EVAN CUEVAS MD May 11, 2024 22:47
[2024-05-11 23:00] VITALS: BP 120/80; PULSE 72; RESP 16; TEMP 98.2; O2SAT 98
--- NOTE | 2024-05-11 23:21 | NUR ---
previous splint placed remove and modified preformed splint placed per md request
--- NOTE | 2024-05-12 08:27 | HMCIMG ---
HAND 3+VWS LT REASON: increased pain TECHNIQUE: 3 views were obtained. FINDINGS: There is no evidence of fracture or dislocation. There is no joint effusion. The soft tissues appear unremarkable. There is no evidence of a radiopaque foreign body. There are severe degenerative changes at the base of the thumb consistent with osteoarthritis. There are less pronounced changes in the DIP joints. IMPRESSION: No acute findings.
== END 2024-05-11 23:24 | disposition home or self-care (01) ==
LOC: EDH 21:30
DX: S62.315A Displaced fracture of base of fourth metacarpal bone, left hand, initial encounter for closed fracture (principal); E11.9 Type 2 diabetes mellitus without complications; E78.00 Pure hypercholesterolemia, unspecified; I10 Essential (primary) hypertension; Z79.01 Long term (current) use of anticoagulants; Z79.51 Long term (current) use of inhaled steroids; Z79.84 Long term (current) use of oral hypoglycemic drugs; Z79.899 Other long term (current) drug therapy; X58.XXXA Exposure to other specified factors, initial encounter; Y93.89 Activity, other specified; Y92.89 Other specified places as the place of occurrence of the external cause; Y99.8 Other external cause status
CPT/HCPCS: 29125; 73130; 99283

== ENCOUNTER 2025-01-15 10:46 | Emergency (ER) | payer OTHER ==
[~2025-01-15] VITALS: Ht 180.3 cm; Wt 78.5 kg
[~2025-01-15 10:46] MED LIST changes: -GLIP2.5T2 PO; +GLIP2.5T23 PO
[2025-01-15 11:14] LABS: IMMATURE GRANULOCYTE ABSOLUTE 0.01 K/uL (0-1); NUCLEATED RED BLOOD CELLS 0.0 % (0.0-0.19); PLATELET COUNT (AUTO) 225 K/uL (130-400); RED BLOOD CELL COUNT(AUTO) 3.92 MIL/uL (4.50-6.20); RED CELL DISTRIBUTION WIDTH 15.6 % (11.0-15.5); WHITE BLOOD COUNT (AUTO) 8.5 K/uL (4.8-10.8)
[2025-01-15 11:23] LABS: ASPARTATE AMINOTRANSFERASE 22.0 U/L (10-37); CREATININE 1.1 mg/dL (0.5-1.3); GLOMERULAR FILTR. RATE CALC 65.0 mL/min (>90); GLUCOSE,RANDOM 93.0 mg/dL (70-105); SODIUM SERUM 141.0 mmol/L (136-145); TOTAL PROTEIN, SERUM 7.2 g/dL (6.0-8.3); UREA NITROGEN, BLOOD 27.0 mg/dL (7-18)
--- NOTE | 2025-01-15 12:00 | HMCIMG ---
EXAM: CT Head Without IV contrast. CLINICAL HISTORY: fall TECHNIQUE: Axial computed tomography images of the head/brain without intravenous contrast. COMPARISON: None provided. FINDINGS: BRAIN: Age-related cerebral atrophy. Bilateral periventricular hypodensities suggest small vessel ischemic disease. No evidence of acute hemorrhage. No mass lesion. No CT evidence for acute territorial infarct. No midline shift or extra-axial collections. VENTRICLES: No hydrocephalus. ORBITS: The orbits are unremarkable. SINUSES AND MASTOIDS: The paranasal sinuses and mastoid air cells are clear. BONES: No fracture. SOFT TISSUES: Unremarkable. IMPRESSION: 1. No acute intracranial findings. /[place]
--- NOTE | 2025-01-15 12:10 | HMCIMG ---
EXAM: CT Cervical Spine Without IV contrast. CLINICAL HISTORY: fall TECHNIQUE: Axial computed tomography images of the cervical spine without intravenous contrast. Sagittal and coronal reformatted images were generated. COMPARISON: None provided. FINDINGS: ALIGNMENT: Reversal of the expected lordotic curvature. May reflect paraspinal muscular spasm as well as postsurgical changes due to fusion. DEGENERATIVE CHANGES: Cervical spondylosis is evident by anterior osteophytes, reduced disc spaces, uncovertebral joint hypertrophy, and multilevel facet joint osteoarthritis. There is multilevel degenerative disc disease, more pronounced at C5-C7. No significant canal stenosis or neural foraminal narrowing is evident. SOFT TISSUES: The prevertebral soft tissues are within normal limits. BONES: Screw fixations in C3 to C7 vertebrae are consistent with post-operative status. No acute fracture. IMPRESSION: 1. No acute osseous injury. 2. Post-operative changes with screw fixation in C3 to C7 vertebrae. 3. Degenerative changes in the cervical spine. /[place]
--- NOTE | 2025-01-15 12:20 | EKG ---
[facility] Test Date: 2025-01-15 Test Time: 11:15:50 Pat Name: JENAE FISHER Department: ED Room: Gender: M [employer] Director: [id number] : 1940 Requested By: BONILLA OAKLEY Order Number: [id number] Reading MD: Alyce Sterling Measurements Intervals [place] Rate: 67 P: 50 [place]: 176 QRS: -17 QRSD: 100 T: 23 QT: 462 QTc: 488 Interpretive Statements Sinus rhythm Inferior infarct, old Compared to ECG 06/23/2023 05:05:01 Atrial fibrillation no longer present Myocardial infarct finding still present Electronically Signed On 01-16-2025 16:11:17 CDT by Alyce Sterling Please click the below link to view image of tracing.
--- NOTE | 2025-01-15 12:31 | HMCIMG ---
EXAM: CT Chest Without IV contrast. CT Abdomen and Pelvis Without IV contrast CLINICAL HISTORY: fall TECHNIQUE: Axial computed tomography images of the chest, abdomen and pelvis without intravenous contrast. CONTRAST: None. COMPARISON: Study dated 10/11/09. FINDINGS: CHEST: LUNGS: Mosaic attenuation in bilateral lung leyva. Dependent airway disease along bilateral lower lobes, presumed to represent basal atelectasis. No pulmonary mass. PLEURAL SPACES: No evidence of pneumothorax. No pleural effusion. HEART: Mild cardiomegaly. No significant pericardial effusion. LYMPH NODES: No lymphadenopathy is evident. ABDOMEN AND PELVIS: LIVER: Unremarkable. No focal lesions. GALLBLADDER AND BILE DUCTS: The gallbladder appears within normal limits. No radioopaque gallstones are seen. No biliary ductal dilatation is evident. PANCREAS: Unremarkable. SPLEEN: Unremarkable. ADRENAL GLANDS: Unremarkable. KIDNEYS, URETERS, AND BLADDER: Mild bilateral perinephric fat stranding is concerning for renal parenchymal disease. No hydronephrosis or nephrolithiasis. No ureteral or bladder calculi. STOMACH AND BOWEL: Sliding hiatus hernia. Colonic diverticulosis without diverticulitis. No evidence of bowel obstruction. No evidence suggesting enteritis or colitis. 1.2 cm-sized umbilical defect with omental fat herniation. Left-sided small inguinal hernia with fat herniation. APPENDIX: No evidence of acute appendicitis on CT examination. PERITONEUM: No free fluid. No free air. LYMPH NODES: No lymphadenopathy is evident. VASCULATURE: Atherosclerotic changes in the form of eccentric vessel wall calcification in the abdominal aorta and its major branches. No evidence of abdominal aortic aneurysm. BONES: Proximal femoral nailing on the right side. Grade I anterolisthesis of L4 over L5 vertebra. Degenerative changes in the spine. No acute osseous abnormality. IMPRESSION: 1. No acute intracranial, intrathoracic, intra-abdominal, or pelvic findings. 2. Mild bilateral perinephric fat stranding, concerning for renal parenchymal disease. 3. 1.2 cm umbilical hernia and left-sided small inguinal hernia, both with fat herniation. 4. Sliding hiatus hernia. 5. Colonic diverticulosis without diverticulitis. /[place]
--- NOTE | 2025-01-15 12:42 | HMCIMG ---
EXAM: CR right Hand, 3 View. CLINICAL HISTORY: fall COMPARISON: None provided. FINDINGS: BONES: No acute osseous pathology evident. JOINTS: No evidence of dislocation. 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 Most pronounced at the base of the first metacarpal. Mild osteoarthritic changes of the PIP and DIP joint spaces with joint space narrowing. SOFT TISSUES: The soft tissues appear within normal limits. No radiopaque foreign body is seen. IMPRESSION: No acute pathology evident. No acute fracture or dislocation. Intercarpal, carpometacarpal, PIP and DIP joint space osteoarthritic changes. /[place]
--- NOTE | 2025-01-15 13:52 | ERN ---
ED Note History of Present Illness Stated Complaint: FALL, RIGHT ARM, RT HAND PAIN Chief Complaint: Mechanical Fall Time Seen by MD: 10:50 Dictation: 84-year-old male mechanical fall onto his right side injuring his head and right hand, patient is on blood thinners and has a history of dementia Allergies: Coded Allergies: No Known Allergies (Verified Allergy, Unknown, 10/30/21) Home Meds Active Scripts Cephalexin (Cephalexin) 500 Mg Tablet, 1 TAB PO TID for 7 Days, #21 TAB 0 Refills Prov:DIAN VELASCO [employer] 05/07/24 Reported Medications Fluticasone/Vilanterol (Breo Ellipta 100-25 Mcg INH) 100 Mcg-25 Mcg/Dose Aer.pow.ba, 1 EACH IH DAILYBKFST 06/21/23 Atorvastatin Calcium (Atorvastatin Calcium) 20 Mg Tablet, 20 MG PO DAILY, TAB 06/21/23 Glipizide (Glipizide ER) 2.5 Mg Tab.er.24, 2.5 MG PO DAILY 06/21/23 Ergocalciferol (Vitamin D2) (Vitamin D2) 1,250 Mcg (34760 Unit) Capsule, 1250 MCG PO QWEEK, CAP 06/21/23 Dapagliflozin Propanediol (Farxiga) 10 Mg Tablet, 10 MG PO DAILYBKFST, TAB 06/21/23 Apixaban (Eliquis) 5 Mg Tablet, 5 MG PO BID, TAB 06/21/23 Metformin HCl (Metformin HCl) 1,000 Mg Tablet, 1000 MG PO BID, TAB 06/21/23 Pantoprazole Sodium (Pantoprazole Sodium) 40 Mg Tablet.dr, 40 MG PO DAILY, TAB 06/21/23 Diltiazem HCl (Diltiazem ER) 240 Mg Capsule.er, 240 MG PO DAILYBKFST, CAP 06/21/23 Past Medical History Past Medical History: Diabetes-Type II, High Cholesterol, Hypertension Surgical History: Other Surgical History Other: BACK SURGERY, HIP SX Family History: HTN Social History: Negative, Lives with family Review of System Dictation Constitutional: Negative for fever,chills, and weight loss Eyes: Negative for injury, pain,redness, and discharge ENT: Negative for injury,pain or swelling Cardiovascular: Negative for chest pain, palpitations, and edema Respiratory: Negative for shortness of breath, cough, and wheezing, Abdomen/GI: Negative for abdominal pain, nausea, vomiting, diarrhea, and const ipation Back: Negative for injury and pain : Negative for injury, bleeding and discharge MS/Extremity: Per HPI Skin: Negative for rash, and discoloration Neuro: Negative for headache, weakness, numbness, tingling, and seizure Psych: Negative for suicide ideation, homicidal ideation, and hallucinations Initial Vital Sign VS Vital Signs Date Time Temp Pulse Resp B/P (MAP) Pulse Ox O2 Delivery O2 Flow Rate FiO2 01/15/25 10:49 99.0 64 16 143/70 0 Room Air 0 01/15/25 11:02 21 Physical Exam Dictation General: awake, alert, NAD Head/Face: Normocephalic, atraumatic Eyes: PERRL, EOMI, vision at baseline ENT: oral cavity clear, TMs clear, no signs of infection Neck: Trachea midline, supple, no nuchal rigidity Cardiovascular: RRR, normal S1/S2, No MRGs, no JVD Respiratory: CTAB, no respiratory distress, No rales or wheezes Abdomen: Soft, non-tender, non-distended, normal bowel sounds, no guarding or rebound. Skin: Warm, dry, normal turgor, no rash MS/Extremity: Pulses equal, no cyanosis, neurovascular intact, FROM, swelling to right hand Neuro: COAx4, GCS 15, strength 5/5, CN 2-12 intact, normal cerebellar exam, normal gait, Psych: Normal behavior, mood, and affect normal Results (Laboratory/Radiology) Laboratory/Radiology Laboratory Tests Test 01/15/25 11:01 White Blood Count 8.5 K/uL (4.8-10.8) Red Blood Count 3.92 MIL/uL (4.50-6.20) L Hemoglobin 11.4 g/dL (14.0-18.0) L Hematocrit 35.6 % (42-54) L Mean Corpuscular Volume 90.8 fL (79-99) Mean Corpuscular Hemoglobin 29.1 pg (27.0-33.0) Mean Corpuscular Hemoglobin Concent 32.0 g/dL (32.0-36.0) Red Cell Distribution Width 15.6 % (11.0-15.5) H Platelet Count 225 K/uL (130-400) Mean Platelet Volume 10.1 fL (7.5-10.5) Immature Granulocyte % (Auto) 0.1 % (0-1) Neutrophils (%) (Auto) 68.1 % (40.0-77.0) Lymphocytes (%) (Auto) 19.7 % (21.0-51.0) L Monocytes (%) (Auto) 7.4 % (3.0-13.0) Eosinophils (%) (Auto) 3.8 % (0.0-8.0) Basophils (%) (Auto) 0.9 % (0.0-5.0) Neutrophils # (Auto) 5.8 K/uL (1.8-7.7) Lymphocytes # (Auto) 1.7 K/uL (1.0-4.8) Monocytes # (Auto) 0.6 K/uL (0.1-1.0) Eosinophils # (Auto) 0.32 K/uL (0.00-0.70) Basophils # (Auto) 0.08 K/uL (0.00-0.20) Absolute Immature Granulocyte (auto 0.01 K/uL (0-1) Nucleated Red Blood Cells 0.0 % (0.0-0.19) Sodium Level 141 mmol/L (136-145) Potassium Level 4.2 mmol/L (3.5-5.1) Chloride Level 104 mmol/L (101-111) Carbon Dioxide Level 28 mmol/L (21-32) Blood Urea Nitrogen 27 mg/dL (7-18) H Creatinine 1.1 mg/dL (0.5-1.3) Glomerular Filtration Rate Calc 65 mL/min (>90) Random Glucose 93 mg/dL (70-105) Total Calcium 8.6 mg/dL (8.5-10.1) Total Bilirubin 0.6 mg/dL (0.2-1.0) Aspartate Amino Transf (AST/SGOT) 22 U/L (10-37) Alanine Aminotransferase (ALT/SGPT) 22 U/L (12-78) Alkaline Phosphatase 108 U/L (50-136) Troponin I High Sensitivity 15 ng/L (4-75) Total Protein 7.2 g/dL (6.0-8.3) Albumin 4.0 g/dL (3.5-5.0) Labs Reviewed?: Yes EKG Comment: Heart rate 67 normal sinus rhythm normal intervals no STEMI ED Course ED Course Orders Procedure Category Date Status Time 12 Lead Ekg Tracing- EKG 01/15/25 Complete Technical 10:58 Cbc With Differential LAB 01/15/25 Complete 10:58 Comprehensive LAB 01/15/25 Complete Metabolic Panel 10:58 Troponin I High LAB 01/15/25 Complete Sensitivity 10:58 Ct Head/Brain W/O CT 01/15/25 Resulted Contrast 10:58 Ct Cervical Spine W/O CT 01/15/25 Resulted Contrast 10:58 Ct Chest/Abd/Pelv W/O CT 01/15/25 Resulted Contrast 10:58 Hand 3+Vws Rt RAD 01/15/25 Resulted 10:58 Vital Signs Date Time Temp Pulse Resp B/P (MAP) Pulse Ox O2 Delivery O2 Flow Rate FiO2 01/15/25 11:02 98.1 63 16 141/66 98 Room Air* 0 21 01/15/25 10:49 99.0 64 16 143/70 0 Room Air 0 Medical Decision Making MDM MDM: Differential diagnosis: Rationale: Tests considered and ordered secondary to shared decision making include: Previous outside records reviewed: Old ER visits. Risk of complication and/or morbidity or mortality of patient management: None Medications-Per medication reconciliation Need for hospitalization: Patient does not meet criteria for hospitalization. Need for emergency major/minor surgery: No There are no social concerns with this patient. Prescription drug management Prescriptions will include symptomatic care Patient's prior external medical records from other ER visits were reviewed by me as indicated. Prior testing and results from previous visits were reviewed. Prior tests were taken into account with medical decision making and resource utilization, independent historian/historians were used to obtain complete medical history. I independently interpreted the test that were performed, results were reviewed by me and considered findings on radiology if ordered. Medical management and examination interpretation discussions were had by me with other qualified healthcare professionals as indicated for the patient's care. 84-year-old male mechanical fall negative CT scans in cardiac workup stable for discharge DX & DISP Disposition: Discharge Departure Impression: Primary Impression: Fall Additional Impression: Head injury Condition: Stable Referrals: SEEMA MENDOZA MD (PCP) BONILLA OAKLEY MD Jan 15, 2025 13:52
[2025-01-15 14:04] VITALS: BP 153/80; PULSE 62; RESP 16; TEMP 98.1; O2SAT 98
== END 2025-01-15 14:13 | disposition home or self-care (01) ==
LOC: EDH 10:46
DX: S09.90XA Unspecified injury of head, initial encounter (principal); I10 Essential (primary) hypertension; Z79.01 Long term (current) use of anticoagulants; E11.9 Type 2 diabetes mellitus without complications; E78.00 Pure hypercholesterolemia, unspecified; Z79.51 Long term (current) use of inhaled steroids; Z79.84 Long term (current) use of oral hypoglycemic drugs; Z79.899 Other long term (current) drug therapy; W18.39XA Other fall on same level, initial encounter; Y93.89 Activity, other specified; Y92.89 Other specified places as the place of occurrence of the external cause; Y99.8 Other external cause status
CPT/HCPCS: 36415; 70450; 71250; 72125; 73130; 74176; 80053; 84484; 85025; 93005; 99285